=== PATIENT | male | born 1990 | race Two or more races ===

== ENCOUNTER 2025-06-19 15:57 | Emergency (ER) | payer OTHER ==
[~2025-06-19] VITALS: Ht 172.7 cm; Wt 79.4 kg
[2025-06-19] MEDS: KETOROLAC 30 MG/ML 1 ML VIAL IM ONE (18:04)
[2025-06-19] MEDS: ONDANSETRON 4MG ORAL DISINTEGRATING TAB PO ONE (18:04)
[2025-06-19 19:40] VITALS: BP 140/84; TEMP 97.4; O2SAT 98
== END 2025-06-19 19:43 | disposition home or self-care (01) ==
LOC: M ED 15:57
DX: M54.2 Cervicalgia (principal); Y99.1 Military activity; Y92.9 Unspecified place or not applicable; X58.XXXA Exposure to other specified factors, initial encounter; Y93.89 Activity, other specified
CPT/HCPCS: 72125; 96372; 99283; J1885